=== PATIENT | female | born 1975 | race Two or more races ===

== ENCOUNTER 2019-04-14 08:02 | Inpatient (IN) | payer OTHER ==
[2019-04-13 16:38] VITALS: BMI 25.7
[2019-04-14] MEDS ORDERED: BUPIVACAINE HCL/PF 0.5% (5 MG/ML) 30 ML VIAL IJ ONE (11:34)
[2019-04-14] MEDS ORDERED: DEXAMETHASONE SOD PHOSPHATE/PF 10 MG/ML SDV ONE (11:36)
[2019-04-14] MEDS ORDERED: MIDAZOLAM HCL 2 MG/2 ML SINGLE DOSE VIAL ONE ×2 (12:38)
[2019-04-14] MEDS ORDERED: HYDROmorphone HCl 2 MG/ML VIAL ONE (13:02)
[2019-04-14] MEDS ORDERED: ROCURONIUM BROMIDE 50 MG/5 ML SYRINGE ONE (13:03)
[2019-04-14] MEDS ORDERED: ceFAZolin 2 GRAM PREMIX BAG IVPB ONE (13:06)
[2019-04-14] MEDS ORDERED: ISOSULFAN BLUE 10 MG/ML VIAL SQ ONE (13:11)
[2019-04-14] MEDS ORDERED: ACETAMINOPHEN 650 MG/20.3 ML ORAL SOLUTION (CUPS) PO PRN (15:06)
[2019-04-14] MEDS ORDERED: ONDANSETRON 4 MG/2 ML VIAL IVPUSH PRN (15:08)
[2019-04-14] MEDS ORDERED: oxyCODONE HCL 5 MG TABLET PO PRN ×2 (15:11)
--- NOTE | 2019-04-14 15:20 | HP ---
History & Physical Update - History History: No Change - Physical Physical: No Change - Assessment Assessment: No Change - Plan Plan: No Change
[2019-04-14] MEDS ORDERED: ceFAZolin SODIUM 1 GM VIAL IVPB ONE (17:01)
--- NOTE | 2019-04-14 17:57 | OP ---
Operative Note - Note: Operative Date: 04/14/19 Pre-Operative Diagnosis: Right Breast Cancer Operation: Bilateral Immediate Breast Reconstruction, Insertion of Bilateral Breast Tissue Expanders, Insertion of Bilateral Alloderm Sheets. Implants: Tissue Expanders [place] CPX-4 Medium Height 550cc (Both Sides) Post-Operative Diagnosis: Same as Pre-op Surgeon: Leonard William Anesthesia: General Drains & Tubes with Location: Kaushik Grace Drains- 2 per side exiting in Anterior Axillary Lines Operative Report Dictated: Yes
[2019-04-14] MEDS: ACETAMINOPHEN 1000 MG/100 ML VIAL (NON FORMULARY) IVPB ONE (18:00)
[2019-04-14] MEDS ORDERED: ACETAMINOPHEN INJECTION 100 ML IVPB ONE (18:17)
--- NOTE | 2019-04-14 18:45 | OP ---
DATE OF OPERATION: 04/14/2019 PREOPERATIVE DIAGNOSIS: Right breast cancer. POSTOPERATIVE DIAGNOSIS: Right breast cancer. PROCEDURE: Bilateral nipple-sparing mastectomy and right sentinel node biopsy. SURGEON: Carla Armstrong MD ANESTHESIA: General. ESTIMATED BLOOD LOSS: 100 mL. DRAINS: None. COMPLICATIONS: None. DISPOSITION: This was a sterile procedure. INDICATION: Patient presented with a palpable mass in the upper inner right breast. A needle core biopsy showed invasive carcinoma. We had a discussion of surgical options, and she opted to have a mastectomy for the right breast cancer and a prophylactic mastectomy on the left side. The procedure was discussed, with all the questions answered. She met with Dr. William, from plastic surgery, to discuss reconstruction. PROCEDURE IN DETAIL: The patient was brought to [facility] and taken to Nuclear Medicine, where I injected technetium sulfur colloid over the intradermal injection in the right breast 1 to 2 o'clock areolar border as well as into peritumoral in the upper inner right breast. She was then brought up to the operating room, after a paravertebral block was placed by the anesthesiologist in holding, and taken into the operating room. After induction of general anesthesia and IV antibiotics, both breasts and axillae were prepped and draped in usual sterile fashion. Then 5 mL of isosulfan blue dye was injected into the right subareolar plexus. The breast was massaged for 5 minutes. I used a probe to see there was minimal activity in the internal mammary chain. Both breasts and the right axilla were then prepped and draped in the usual sterile fashion. A 4-cm incision was made into the right axilla, carried down through the clavipectoral fascia to identify there was a group of lymph nodes together that came out of sentinel lymph node number 1 that were blue and hot. There was a 2nd lymph node I found that was blue but not hot. I sent that as right axillary sentinel node number 2. There was additional lymph node that appeared initially hot but ex vivo had no count, so I sent that as a right axillary nonsentinel node. On exploring the right axilla, there was a 3rd sentinel lymph node found that was blue and hot as well. There was no other blue dye radioactivity or pathologic feeling lymph node in the right axilla, therefore once hemostasis was assured, the right nipple-sparing mastectomy was performed through an inframammary incision that was marked out by Dr. William. Superiorly, the flap was created to leave the nipple-areolar complex up to the clavicle and medially to the sternum and laterally to the inframammary fold. The breast was then taken off the pectoralis muscle using electrocautery. I placed a long stitch lateral and a short stitch at the nipple edge of skin. I did diandra a silk stitch over the skin overlying the most thin part of the tumor anteriorly in case the anterior margin comes backing in machine tender involved and she may need that skin excised. Also, grossly, I could see that posteriorly then the tumor was right at the pectoralis, therefore, I took a new additional posterior margin underneath this as the 1st layer of pectoralis with a stitch at the old margin. This was sent as a right breast new posterior margin behind tumor, with stitch at the old margin. Hemostasis was again assured with electrocautery. Next, the gown, gloves and instruments were changed and the left nipple-sparing mastectomy was performed. An inframammary incision was made in the left breast and the breast was disconnected anteriorly from the skin, leaving the nipple-areolar skin. This was up to the clavicle, medially to the sternal edge, as well as laterally to the edge of the inframammary crease. The breast was then reflected off the pectoralis muscle, tagged with a long stitch lateral and a short stitch at the nipple. This was sent to Pathology for permanent section. Hemostasis again assured with electrocautery. The patient was then left for Dr. William to finish the reconstruction part of the procedure. Celia [id number]
[2019-04-14] MEDS ORDERED: CEFAZOLIN 1 GM in DEXTROSE 5%-WATER - 50 ML IVPB SCH (21:00)
[2019-04-14] MEDS: LACTATED RINGERS SOLUTION 1,000 ML/1,000 ML INFUS.BAG IV SCH (21:57)
[2019-04-14] MEDS: ACETAMINOPHEN 325 MG TABLET (FP) PO SCH (21:58)
[2019-04-14] MEDS: traMADol HCL 50 MG TABLET PO SCH (21:59)
[2019-04-14] MEDS: diazePAM 5 MG TABLET PO SCH (22:01)
[2019-04-15] MEDS ORDERED: ceFAZolin SODIUM 1 GM VIAL ONE (01:08)
[2019-04-15] MEDS ORDERED: DEXTROSE 5%-WATER - 50 ML IVPB ONE (01:08)
[2019-04-15] MEDS: traMADol HCL 50 MG TABLET PO SCH ×3 (04:38→09:58)
[2019-04-15] MEDS: ACETAMINOPHEN 325 MG TABLET (FP) PO SCH ×4 (04:39→15:22)
[2019-04-15] MEDS: diazePAM 5 MG TABLET PO SCH (09:51)
[2019-04-15] MEDS: LACTATED RINGERS SOLUTION 1,000 ML IV SCH ×3 (09:52→17:00)
[2019-04-15] MEDS: CEFAZOLIN 1 GM in DEXTROSE 5%-WATER - 50 ML IVPB SCH ×2 (09:57→09:58)
[2019-04-15] MEDS: LACTATED RINGERS SOLUTION 1,000 ML/1,000 ML INFUS.BAG IV SCH ×2 (09:58→15:22)
[2019-04-15] MEDS: ACETAMINOPHEN 1000 MG/100 ML VIAL (NON FORMULARY) IVPB ONE (09:59)
--- NOTE | 2019-04-15 10:37 | PN ---
Progress Note (short form) - Note Progress Note: Anesthesia pain Pt seen and exmained S:Alert and awake, comfortable O: Vital Signs Temperature 98.3 F 04/15/19 02:00 Pulse Rate 91 H 04/15/19 02:00 Respiratory Rate 18 04/15/19 02:00 Blood Pressure 105/59 L 04/15/19 02:00 O2 Sat by Pulse Oximetry (%) 100 04/14/19 19:25 A/P: s/p Fabio mastectomy Doing well post op Continue current care Perico Junior MD
--- NOTE | 2019-04-15 11:09 | OP ---
DATE OF OPERATION: 04/14/2019 AGE: 43. SEX: Female. PREOPERATIVE DIAGNOSIS: Right breast cancer. POSTOPERATIVE DIAGNOSIS: Right breast cancer. PROCEDURE PERFORMED: Bilateral immediate breast reconstruction with insertion of bilateral breast tissue expanders and insertion of bilateral AlloDerm sheets. SURGEON: Leonard William MD ANESTHESIA: General. BRIEF HISTORY: The patient is a patient of Dr. Armstrong, who is undergoing bilateral nipple-sparing mastectomies for a right palpable breast cancer, approximately 4 cm in size. Breast reconstruction is being done immediately after the mastectomies. PROCEDURE: The patient was on the operating table in a supine position at the conclusion of bilateral nipple-sparing mastectomies by Dr. Armstrong. Moist lap pads are packing each surgical site. The right breast was addressed first. Of note, the thin area of skin overlying the palpable tumor in the right breast upper inner quadrant was tagged with a suture by Dr. Armstrong, and this suture will be left in postoperatively to diandra the area pending pathology report as further skin excision may be required. The skin was retracted, and the inferior border of the pectoralis major muscle was identified. The subpectoral plane was then developed using electrocautery. A fiberoptic lighted retractor was used to assist in further dissection of the subpectoral plane. The inferomedial attachments of the pectoralis major muscle to the lower ribs were divided. A sheet of AlloDerm was introduced onto the field and soaked in saline solution for approximately 10 minutes. The AlloDerm, which was a contoured, perforated sheet, was sutured to the inferior border of the pectoralis major muscle using 2-0 Vicryl suture in interrupted horizontal mattress fashion with the AlloDerm tucking under the edge of the pectoralis muscle. The lateral portion of the mastectomy defect extended beyond the extent of the pectoralis major muscle, and this area was closed with number 3-0 Biosyn suture in interrupted buried fashion to prevent lateral displacement of the tissue ordnance artificer. The AlloDerm was sutured to the lateral chest wall for this same purpose. The tissue ordnance artificer brought onto the field was a [place] CPX tissue ordnance artificer with suture tabs, a medium height, size 550 mL. The supplied butterfly needle was used to first remove all air from the tissue ordnance artificer, instilling 50 mL prior to insertion. The tissue ordnance artificer was inserted without difficulty, and a 2-0 Vicryl suture was used to fix the suture tab inferiorly at the 6 o'clock position. The AlloDerm was then reflected over the lower pole of the tissue ordnance artificer and trimmed to size. The inferior margin of the AlloDerm was then sutured in place using 2-0 Vicryl suture in interrupted and continuous fashion. Kaushik-Grace drains were inserted through separate stab incisions in the anterior axillary line, one directed inferiorly and one directed superolaterally. These were sutured in place with 3-0 nylon suture. The skin was then closed in layered fashion. Deep tissues were closed with number 3-0 Biosyn suture in interrupted buried fashion, and skin was closed with a 4-0 V-Loc 90 suture in continuous intradermal fashion. The right breast was then addressed, and a similar procedure was performed. The tissue ordnance artificer size and type was identical to the left, and 2 Kaushik-Grace drains were inserted similarly. At the conclusion of the procedure, prior to dressings, the included port finder was used to locate the port on each breast, and additional saline was instilled into the tissue ordnance artificer. At the conclusion of the procedure, each expanded had 250 mL of saline instilled. Additional saline was not inserted to prevent any further pressure on the undersurface of the flap. Wound was further secured with Steri-Strips, and sterile dressings were applied. Dressings consisted of Kerlix fluffs and combine pads secured with a surgical bra. The patient was then awoken from anesthesia without difficulty and taken from the operating room to the recovery room in satisfactory condition, having tolerated the procedure well. Celia [id number]
--- NOTE | 2019-04-15 12:59 | PN ---
Progress Note (short form) - Note Progress Note: doingw ell pod 1 s/p bl mastec ctomy afeb, vss, pain control adequate flaps intact, JPs in place ambulate d/c home today
[2019-04-15 14:46] VITALS: BP 95/58; PULSE 89; TEMP 98.7
--- NOTE | 2019-04-21 18:21 | PATH ---
Surgical Pathology Report Patient Name: MEGHAN MADDOX [facility]. Rec. #: [id number] /Age/Gender: 1975 (Age: 43) / F Account: [id number] Location: [address] [place] [address] Taken: 04/14/2019 Received: 04/15/2019 Reported: 04/21/2019 Physicians: Carla Armstrong M.D. Specimen(s) Received A: RIGHT AXILLERY SENTINEL LYMPH NODE #1 HOT AND BLUE B: RIGHT AXILLERYSENTINEL LYMPH NODE #2 BLUE NOT HOT C: RIGHT AXILLERY NON-SENTINEL LYMPH NODE D: RIGHT AXILLERY SENTINEL LYMPH NODE #3 BLUE AND HOT E: RIGHT BREAST NEW POSTERIOR (BEHIND TUMOR) STITCH EGAN OLD MARGIN F: RIGHT MASTECTOMY LONG STITCH LATERAL SHORT STITCH NIPPLE G: LEFT MASTECTOMY LONG STITCH LATERA SHORT STITCH NIPPLE Clinical History Right breast cancer, bilateral nipple sparing mastectomy Final Diagnosis A. RIGHT AXILLARY SENTINEL LYMPH NODE #1, HOT AND BLUE, EXCISION: FOUR LYMPH NODES, NEGATIVE FOR METASTATIC CARCINOMA (0/4). B. RIGHT AXILLARY SENTINEL LYMPH NODE #2, BLUE NOT HOT, EXCISION: ONE LYMPH NODE, NEGATIVE FOR METASTATIC CARCINOMA (0/1). C. RIGHT AXILLARY NON-SENTINEL LYMPH NODE, EXCISION: ONE LYMPH NODE, NEGATIVE FOR METASTATIC CARCINOMA (0/1). D. RIGHT AXILLARY SENTINEL LYMPH NODE #3, BLUE AND HOT, EXCISION: ONE LYMPH NODE, NEGATIVE FOR METASTATIC CARCINOMA (0/1). E. RIGHT BREAST NEW POSTEIOR MARGIN (BEHIND TUMOR), EXCISION: BENIGN SKELETAL MUSCLE AND FIBROADIPOSE TISSUE, NEGATIVE FOR CARCINOMA. F. RIGHT BREAST, MASTECTOMY: INVASIVE DUCTAL CARCINOMA, POORLY DIFFERENTIATED (TUBULE SCORE 3/3, NUCLEAR GRADE: 2/3, MITOTIC SCORE: 3/3, TOTAL SCORE 8/9, WILVER GRADE 3), MEASURING 2.5 CM IN GREATEST DIMENSION, MICROSCOPICALLY. DUCTAL CARCINOMA IN SITU (DCIS) PRESENT, HIGH NUCLEAR GRADE, SOLID AND CRIBRIFORM PATTERN. SURGICAL MARGINS ARE UNINVOLVED BY CARCINOMA. INVASIVE CARCINOMA IS AT 1 MM FROM THE CLOSEST (POSTERIOR) MARGIN. DCIS IS AT6 MM FROM THE CLOSEST (POSTERIOR) MARGIN. ALSO SEE SPECIMEN E FOR FINAL POSTRIOR MARGIN. NO LYMPHOVASCULAR INVASION IS IDENTIFIED. REMAINING BREAST TISSUE SHOW ATYPICAL LOBULAR HYPERPLASIA (ALH), PROLIFERATIVE FIBROCYSTIC CHANGES INCLUDING ADENOSIS, USUAL DUCTAL HYPERPLASIA, CYSTIC CHANGE, AND STROMAL FIBROSIS. PATHOLOGIC STAGE (pTNM): pT2, pN0 SEE ALSO INVASIVE CARCINOMA CASE SUMMARY BELOW. Comment: Immunohistochemical stain E-cadherin (block F14) performed and interpreted at [facility] shows loss of membranous expression in the areas of atypical lobular hyperplasia. G. LEFT BREAST, MASTECTOMY: BREAST TISSUE WITH PROLIFERATIVE FIBROCYSTIC CHANGES INCLUDING ADENOSIS, USUAL DUCTAL HYPERPLASIA (UDH), COLUMNAR CELL CHANGE, MICROCYSTS, APOCRINE METAPLASIA, AND STROMAL FIBROSIS. Comments Breast Invasive Carcinoma: Surgical Pathology Case Summary (Based on AJCC TNM 8 th edition) Procedure _X_ Total mastectomy (including nipple-sparing and skin-sparing mastectomy) Specimen Laterality _X_ Right Tumor Size _x_ Greatest dimension of largest invasive focus >1 mm (millimeters): 25 mm Histologic Type _x_ Invasive carcinoma of no special type (ductal, not otherwise specified) Histologic Grade (Wilver Histologic Score) Glandular (Acinar)/Tubular Differentiation _x_ Score 3 (<10% of tumor area forming glandular/tubular structures) Nuclear Pleomorphism _x_ Score 2 Mitotic Rate _x_ Score 3 Overall Grade _x_ Grade 3 (scores of 8 or 9) Tumor Focality _x_ Single focus of invasive carcinoma Ductal Carcinoma In Situ (DCIS) _x_ DCIS is present in specimen _x_ Negative for extensive intraductal component (EIC) Margins Invasive Carcinoma Margins _x_ Uninvolved by invasive carcinoma Distance from closest margin (millimeters): > 1mm Closest margin: Posterior (deep) margin. The invasive carcinoma is at 1 mm from the posterior margin in the mastectomy (specimen F). Additional posterior margin (specimen E) is negative for carcinoma. DCIS Margins _x_ Uninvolved by DCIS Distance from closest margin (millimeters): > 6mm Closest margin: Closest margin: Posterior (deep) margin. The DCIS is at 6 mm from the posterior margin in the mastectomy (specimen F). Additional posterior margin (specimen E) is negative for carcinoma. Regional Lymph Nodes _x_ Uninvolved by tumor cells Number of Lymph Nodes Examined: 7 Number of [place] Nodes Examined: 7 Treatment Effect _x_ No known presurgical therapy Lymphovascular Invasion _x_ Not identified Pathologic Stage Classification (pTNM, AJCC 8th Edition) Primary Tumor (Invasive Carcinoma) (pT) _x_ pT2: Tumor >20 mm but =50 mm in greatest dimension Regional Lymph Nodes (pN) Category (pN) _x_ pN0: No regional lymph node metastasis identified or ITCs only Biomarker Studies Results of ER and CT studies performed or prior biopsy (S19 4071) at [facility] are as follows: ER (clone [id number] mouse monoclonal antibody by [employer]): 95% nuclear staining with strong intensity (positive). CT (clone16 mouse monoclonal antibody by [employer]): ~70% nuclear staining with moderate to strong intensity (positive). Results of Her2 (IHC) & Ki-67 studies performed on prior biopsy (S19 [id number])at [place], [place] ( [id number]) are as follows: Her2 IHC (EP3 from [employer], formerly known as [id number], using [employer] Jesus Polymer Refine detection kit): 2+ (equivocal) Ki67: ~10% (low proliferative index) Her2 by FISH performed and interpreted at [place], [place] ([id number]) shows the following result: Interpretation: negative Electronically Signed Nathan Benton M.D. Gross Description A. Received in formalin, labeled "right axillary sentinel lymph node #1, hot and blue" are 4 lymph nodes ranging from 0.3-1 cm in greatest dimension. The specimen is submitted in 2 cassettes. 1. One lymph node, bisected. 2. 3 whole lymph nodes. B. Received in formalin, labeled "right axillary sentinel lymph node #2, blue not hot" is a lymph node measuring 1cm in greatest dimension. The lymph node is bisected and entirely submitted one cassette. C. Received in formalin, labeled "right axillary non-sentinel lymph node" are multiple portions of fatty tissue measuring 2.5 x 2 x 1 cm. One nodule measuring 0.3 cm in greatest dimension is . The specimen is submitted in 2 cassettes. 1. One whole lymph node. 2. The rest of the fatty tissue. D. Received in formalin, labeled "right axillary sentinel lymph node #3, blue and hot" is a lymph node measuring 2cm in greatest dimension. The lymph node is bisected and entirely submitted one cassette. E. Received in formalin labeled "right breast new posterior (behind tumor) stitch egan old margin", is a 3.0 x 2.0 x 0.3 cm portion of fibroadipose tissue with a suture marked old margin, per the surgeon. The new margin is inked blue. The specimen is serially sectioned and entirely submitted in 3 cassettes. F. Received in formalin, labeled "right mastectomy, long stitch lateral, short stitch nipple" is a 550 grams, 17 x 17 x 6 cm. patterson-yellow, fibroadipose tissue. There is a short suture marking the nipple area and a long suture marking the lateral aspect, per the surgeon. There is no skin or nipple present. The specimen is inked as follows: superior red; lateral blue; inferior orange; medial green; anterior yellow; deep/posterior black. The specimen is serially sectioned and reveals 2.5 x 2.5 x 2.3cm indurated mass located at the medial portion of the breast. The mass is located close to the posterior margin. The mass to the second closest margin (medial margin) is 0.9 cm and is far from other margins. The rest of the breast show focal dense fibrotic parenchyma. Craft Manager sections submitted in 14 cassettes as follows. 1, 2. Continuing sections for largest dimension of tumor, with posterior margin. 3. Additional section of tumor. 4. tumor with medial margin. 5. Anterior margin (nipple area). 6. Tissue adjacent to tumor. 7, 8. Parenchyma. 9. upper outer quadrant 10. lower inner quadrant. 11 to 12. upper inner quadrant. 13. lower outer quadrant. 14. Granular change area with lateral margin. 15. Additional anterior margin G. Received in formalin, labeled "left mastectomy, long stitch lateral, short stitch nipple" is a 564 grams, 17 x 17 x 6 cm. patterson-yellow, irregular, portion of fibroadipose tissue. There is a short suture marking the nipple area that is aspect and a long suture marking the lateral aspect, per the surgeon. There is no skin or nipple present. The specimen is inked as follows: superior red; lateral blue; inferior orange; medial green; anterior yellow; deep black. The specimen is serially sectioned and reveals parenchyma with focal cystic change. Craft Manager sections submitted in 10 cassettes as follows. 1, 2. Lower inner quadrant 3-4 upper inner quadrant. 5-6. Central nipple with anterior margin 7-8. Upper outer quadrant. 9-10 lower outer quadrant KWS/04/16/2019 sulki04/16/2019
== END 2019-04-15 17:11 | disposition home or self-care (01) | DRG 578 ==
LOC: JSAMEDAYSX 08:02 → EDSTATUS 09:30 → J6S 20:11
PROVIDERS: ADMIT Surgery; ATTEND Surgery
PROC: 0HTV0ZZ Resection of Bilateral Breast, Open Approach (ICD-10-PCS; principal; 2019-04-14 11:00)
PROC: 0HRVXKZ (ICD-10-PCS; 2019-04-14 11:00)
PROC: 07B50ZX Excision of Right Axillary Lymphatic, Open Approach, Diagnostic (ICD-10-PCS; 2019-04-14 11:00)
PROC: 0HHV0NZ Insertion of Tissue Expander into Bilateral Breast, Open Approach (ICD-10-PCS; 2019-04-14 11:00)
DX: C50.911 Malignant neoplasm of unspecified site of right female breast (principal)
CPT/HCPCS: 78195-TC; 84703; 88307-TC; 94010; 94760; A9541; J0131

== ENCOUNTER 2019-09-29 08:10 | Day surgery (SDC) | payer BC ==
[2019-09-28 11:26] VITALS: BMI 25.7
[2019-09-29] MEDS ORDERED: MIDAZOLAM HCL 2 MG/2 ML SINGLE DOSE VIAL ONE (09:26)
[2019-09-29] MEDS ORDERED: PROPOFOL 20 ML ONE ×2 (09:26→11:31)
[2019-09-29] MEDS ORDERED: ceFAZolin SODIUM 1 GM VIAL IVPB ONE (10:40)
[2019-09-29] MEDS ORDERED: ceFAZolin SODIUM 1 GM VIAL ONE (10:40)
[2019-09-29] MEDS ORDERED: ACETAMINOPHEN INJECTION 100 ML IVPB ONE (12:05)
--- NOTE | 2019-09-29 12:06 | OP ---
Operative Note - Note: Operative Date: 09/29/19 Pre-Operative Diagnosis: History of Breast Cancer Operation: Bilateral Staged Breast Reconstruction, Removal of Tissue Expanders, Replacemement with Silicone Implants. Implants: [place] Smooth Round Moderate-Plus Profile Gel 600cc Post-Operative Diagnosis: Same as Pre-op Surgeon: Leonard William Anesthesia: General Specimens Removed: Tissue Expanders x 2 Operative Report Dictated: Yes
[2019-09-29] MEDS ORDERED: ONDANSETRON 4 MG/2 ML VIAL ONE (12:17)
[2019-09-29] MEDS ORDERED: oxyCODONE HCL 5 MG TABLET PO PRN (12:25)
[2019-09-29] MEDS ORDERED: ONDANSETRON 4 MG/2 ML VIAL IVPUSH PRN (12:25)
[2019-09-29] MEDS ORDERED: ACETAMINOPHEN 1000 MG/100 ML VIAL (NON FORMULARY) IVPB ONE (12:26)
[2019-09-29 13:34] VITALS: TEMP 97.7
[2019-09-29] MEDS ORDERED: oxyCODONE HCL 5 MG TABLET ONE (13:54)
[2019-09-29 15:16] VITALS: BP 138/84; PULSE 80
--- NOTE | 2019-09-30 00:05 | OP ---
DATE OF OPERATION: 09/29/2019 PREOPERATIVE DIAGNOSIS: History of breast cancer. POSTOPERATIVE DIAGNOSIS: History of breast cancer. PROCEDURE PERFORMED: Bilateral stage breast reconstruction with removal of tissue expanders and replacement with bilateral silicone implants. SURGEON: Leonard Gomez MD ANESTHESIA: General via LMA. BRIEF HISTORY: The patient is status post bilateral nipple-sparing mastectomies with placement of tissue expanders. The patient is now fully expanded to 610 mL of saline per side and now presents for exchange to silicone prostheses. DESCRIPTION OF PROCEDURE: The patient was placed on the operating table in the supine position. General anesthesia was administered by the anesthesiologist. The area of the chest was prepped and draped in the usual sterile fashion. The right breast was addressed first. The patient was marked in the standing position and these markings were now used as a guide for surgery. Of note, the right tissue duplicator punch operator is displaced laterally due to scar tissue in the inferomedial quadrant. A portion of the inframammary scar was reopened using a number 15 scalpel blade. Dissection was carried down through the subcutaneous tissues using electrocautery. The underlying AlloDerm was noted to be well incorporated and this was incised, exposing the underlying implant. The implant was punctured with number 10-scalpel blade and deflated to facilitate its removal. The implant was then removed without any difficulty. The pocket was then examined with an LED-lighted retractor and using electrocautery the inferomedial quadrant of the breast capsule was incised and released creating a pocket more symmetric with the contralateral side. The pocket was then infiltrated with dilute betadine solution and the implant selected was a [place] memory gel moderate-plus profile round-smooth implant, 600 mL in size. The implant was brought onto the field and after trimming the Arndt funnel to the correct size, the implant was inserted with the assistance of the funnel without difficulty. After confirming good position, the wound was closed. Deep tissues were closed with number 3-0 Biosyn suture in an interrupted buried fashion and a deep dermal layer of 4-0 V-Loc 90 suture was used to close skin. A similar procedure was performed on the left breast, although the medial pocket did not require release as it did on the right side. A similar size and style implant was selected and inserted without difficulty in a similar fashion. The wounds were closed in an identical fashion and further secured with Steri-Strips. Sterile dressing was then applied consisting of Kerlix gauze and combined pads secured with a surgical bra. The patient was then awoken from anesthesia without any difficulty and taken from the operating room to the recovery room in satisfactory condition, having tolerated the procedure well. LEONARD GOMEZ M.D. [id number]
== END 2019-09-29 15:19 | disposition home or self-care (01) ==
LOC: JASU-SURG 08:10
PROVIDERS: ATTEND Plastic Surgery
PROC: 0HPT0NZ Removal of Tissue Expander from Right Breast, Open Approach (ICD-10-PCS; 2019-09-29)
PROC: 0HRV0JZ Replacement of Bilateral Breast with Synthetic Substitute, Open Approach (ICD-10-PCS; 2019-09-29)
PROC: 0HPU0NZ Removal of Tissue Expander from Left Breast, Open Approach (ICD-10-PCS; principal; 2019-09-29 10:00)
DX: B85.3 Phthiriasis (principal)
CPT/HCPCS: 84703; 94760; J0131